=== PATIENT | female | born 1955 | race Two or more races ===

== ENCOUNTER → 2016-06-17 | Outpatient (CLI) | payer OTHER ==
--- NOTE | 2016-06-17 16:43 | MA ---
Screening Digital Mammogram With iCAD Analysis Clinical Indications: Routine screening. Technique: Standard cephalocaudal and mediolateral oblique projections were obtained. This examinatio n was processed by the iCAD computer-aided detection system. Comparison: June 2014, August 2013, June 2013, May 2009. Breast density: Type C; Heterogeneously dense. Findings: CAD was reviewed. The prominent heterogeneous glandular pattern is stable bilaterally. No masses, suspicious calcifications or other signs of malignancy are identified. There has been no sig nificant change in the appearance of either breast. Impression: Benign mammography. BI-RADS 2. Recommendation: Routine mammographic screening in one year as long as physical examination is negativ e in this patient with heterogeneously dense breast parenchyma. Given this patient's breast density, consideration could be given to screening with tomosynthesis at her next screening interval. [facility] will send a result letter to the patient. Dense breast parenchyma diminishes mammographic sensitivity. Negative mammography should not preclude additional workup of a clinically suspicious finding. The patient's information is entered into a reminder system with a target due date for her next mammo gram.
== END ==
LOC: BRMIMAGING 15:08
DX: Z12.31 Encounter for screening mammogram for malignant neoplasm of breast (principal)
CPT/HCPCS: G0202

== ENCOUNTER → 2017-07-24 | Outpatient (CLI) | payer OTHER | LOC: BRMIMAGING 14:38 | DX: Z12.31 Encounter for screening mammogram for malignant neoplasm of breast (principal) ==